=== PATIENT | female | born 1995 | race Two or more races ===

== ENCOUNTER 2023-08-03 01:35 | Emergency (ER) | payer OTHER ==
[2023-08-03 01:41] VITALS: BP 132/78; PULSE 88; RESP 18; TEMP 98; BMI 29.2
[2023-08-03 03:27] LABS: HCG,QUALITATIVE URINE Negative
[2023-08-03] MEDS ORDERED: ACETAMINOPHEN 325 MG TABLET (FP) PO ONE (03:53)
[2023-08-03] MEDS ORDERED: MAG HYDROX/AL HYDROX/SIMETH 30 ML UNIT-DOSE CUP PO ONE (03:53)
[2023-08-03] MEDS ORDERED: FAMOTIDINE 10 MG TABLET PO ONE (03:54)
[2023-08-03 04:01] LABS: URINE APPEARANCE CLEAR; URINE BILIRUBIN NEGATIVE (NEGATIVE); URINE COLOR YELLOW; URINE GLUCOSE (UA) NEGATIVE (NEGATIVE)
[2023-08-03 04:02] LABS: PH,URINE 6.5 (5.0-8.0); URINE KETONE TRACE (NEGATIVE); URINE LEUK ESTERASE NEGATIVE (NEGATIVE); URINE NITRITE NEGATIVE (NEGATIVE); URINE PROTEIN 100 (NEGATIVE)
== END 2023-08-03 04:40 | disposition home or self-care (01) ==
LOC: JER 01:35
DX: R10.13 Epigastric pain (principal)
CPT/HCPCS: 81003; 84703; 99283-25

== ENCOUNTER 2023-08-07 03:54 | Emergency (ER) | payer OTHER ==
[2023-08-07 04:08] VITALS: BP 145/90; PULSE 63; RESP 18; TEMP 98; BMI 27.4
[2023-08-07 04:40] LABS: EPI CELLS 6 /uL (0-25.1); HCG,QUALITATIVE URINE Negative; HYALINE CASTS 0 /uL (0-3.1); URINE APPEARANCE CLEAR; URINE BACTERIA 36 /uL (0-1359); URINE BILIRUBIN NEGATIVE (NEGATIVE); URINE COLOR YELLOW; URINE GLUCOSE (UA) NEGATIVE (NEGATIVE); URINE KETONE NEGATIVE (NEGATIVE); URINE LEUK ESTERASE NEGATIVE (NEGATIVE); URINE NITRITE NEGATIVE (NEGATIVE); URINE PROTEIN 1+ (NEGATIVE); URINE RBC 5 /uL (0-23.9); URINE UROBILINOGEN 0.2 mg/dL (0.2-1.0); URINE WBC 2 /uL (0-25.8)
[2023-08-07] MEDS ORDERED: MAG HYDROX/AL HYDROX/SIMETH 30 ML UNIT-DOSE CUP PO ONE (04:46)
[2023-08-07] MEDS ORDERED: FAMOTIDINE 20 MG TABLET PO ONE (04:46)
[2023-08-07] MEDS ORDERED: ACETAMINOPHEN 325 MG TABLET (FP) PO ONE (04:46)
[2023-08-07] MEDS ORDERED: ACETAMINOPHEN 325 MG TABLET (FP) ONE (05:03)
[2023-08-07] MEDS ORDERED: MAG HYDROX/AL HYDROX/SIMETH 30 ML UNIT-DOSE CUP ONE (05:04)
[2023-08-07] MEDS ORDERED: FAMOTIDINE 20 MG TABLET ONE (05:04)
[2023-08-07 05:23] LABS: BASO % 1.4 % (0-2.0); EOS % 2.4 % (0-4.5); HEMATOCRIT 34.4 % (32.4-45.2); HEMOGLOBIN 11.4 GM/dL (10.7-15.3); LYMPH % 21.6 % (8-40); MCH 31.3 pg (25.7-33.7); MEAN CELL VOLUME 94.9 fl (80-96); MEAN PLT VOLUME 7.9 fl (7.5-11.1); MONO % 9.2 % (3.8-10.2); NEUT % 65.4 % (42.8-82.8); PLATELET COUNT 427 10^3/uL (134-434); RBC 3.63 M/mm3 (3.60-5.2); WHITE BLOOD COUNT 10.5 K/mm3 (4.0-10.0)
[2023-08-07 05:39] LABS: POTASSIUM 4.8 mmol/L (3.5-5.1)
[2023-08-07 05:41] LABS: CALCIUM 8.7 mg/dL (8.5-10.1)
[2023-08-07 05:42] LABS: ALBUMIN 3.1 g/dl (3.4-5.0); BLOOD UREA NITROGEN 28.9 mg/dL (7-18)
[2023-08-07 05:45] LABS: CREATININE 1.3 mg/dL (0.55-1.3)
[2023-08-07 05:46] LABS: BILIRUBIN,TOTAL 0.2 mg/dL (0.2-1)
== END 2023-08-07 06:26 | disposition home or self-care (01) ==
LOC: JER 03:54
DX: R10.30 Lower abdominal pain, unspecified (principal); N39.0 Urinary tract infection, site not specified
CPT/HCPCS: 36415; 80053; 81003; 83690; 84703; 85025; 87086; 99283-25

== ENCOUNTER 2023-08-11 02:31 | Emergency (ER) | payer OTHER ==
[2023-08-11 02:39] VITALS: BP 148/92; PULSE 67; RESP 18; TEMP 98.5; BMI 36.8
[2023-08-11] MEDS ORDERED: ACETAMINOPHEN 1000 MG/100 ML BAG IVPB ONE (03:01)
[2023-08-11] MEDS ORDERED: ONDANSETRON 4 MG/2 ML VIAL IVPUSH ONE (03:01)
[2023-08-11 03:14] LABS: EPI CELLS >36 /uL (0-25.1); HYALINE CASTS 0 /uL (0-3.1); URINE APPEARANCE CLEAR; URINE BACTERIA 339 /uL (0-1359); URINE BILIRUBIN NEGATIVE (NEGATIVE); URINE COLOR RED; URINE GLUCOSE (UA) NEGATIVE (NEGATIVE); URINE KETONE NEGATIVE (NEGATIVE); URINE LEUK ESTERASE TRACE (NEGATIVE); URINE NITRITE NEGATIVE (NEGATIVE); URINE PROTEIN 2+ (NEGATIVE); URINE RBC 2103 /uL (0-23.9); URINE UROBILINOGEN 0.2 mg/dL (0.2-1.0); URINE WBC 84 /uL (0-25.8)
[2023-08-11] MEDS ORDERED: ONDANSETRON 4 MG TABLET PO ONE ×2 (03:21→03:23)
[2023-08-11] MEDS ORDERED: ACETAMINOPHEN 325 MG TABLET (FP) PO ONE (03:21)
[2023-08-11] MEDS ORDERED: ACETAMINOPHEN 325 MG TABLET (FP) ONE (03:23)
[2023-08-11 03:27] LABS: EOS % 4.3 % (0-4.5); HEMATOCRIT 37.6 % (32.4-45.2); HEMOGLOBIN 12.4 GM/dL (10.7-15.3); LYMPH % 27.3 % (8-40); MCH 30.7 pg (25.7-33.7); MEAN CELL VOLUME 93.1 fl (80-96); MEAN PLT VOLUME 7.7 fl (7.5-11.1); MONO % 8.1 % (3.8-10.2); NEUT % 59.3 % (42.8-82.8); PLATELET COUNT 439 10^3/uL (134-434); RBC 4.04 M/mm3 (3.60-5.2); RDW 15.1 % (11.6-15.6); WHITE BLOOD COUNT 10.2 K/mm3 (4.0-10.0)
[2023-08-11 03:42] LABS: CHLORIDE 106 mmol/L (98-107); POTASSIUM 4.2 mmol/L (3.5-5.1); SODIUM 136 mmol/L (136-145)
[2023-08-11 03:44] LABS: ALBUMIN 3.6 g/dl (3.4-5.0); ANION GAP 1 mmol/L (4-13); BLOOD UREA NITROGEN 19.3 mg/dL (7-18); CALCIUM 8.5 mg/dL (8.5-10.1); CO2 28 mmol/L (21-32); LIPASE 175 U/L (73-393)
[2023-08-11 03:45] LABS: GLUCOSE,RANDOM 108 mg/dL (74-106)
[2023-08-11 03:48] LABS: CREATININE 1.1 mg/dL (0.55-1.3); SGOT/AST 17 U/L (15-37); SGPT/ALT 21 U/L (13-61)
[2023-08-11 03:49] LABS: BILIRUBIN,TOTAL 0.3 mg/dL (0.2-1); TOT PROT 7.9 g/dl (6.4-8.2)
[2023-08-11 03:50] LABS: ALK PHOS 92 U/L (45-117)
== END 2023-08-11 06:36 | disposition home or self-care (01) ==
LOC: JER 02:31
DX: N93.9 Abnormal uterine and vaginal bleeding, unspecified (principal); R10.30 Lower abdominal pain, unspecified; R11.0 Nausea
CPT/HCPCS: 36415; 74176-TC; 80053; 81003; 83690; 84702; 85025; 86850; 86900; 86901; 87086; 93005; 93010; 99285-25

== ENCOUNTER 2024-04-10 03:39 | Emergency (ER) | payer OTHER ==
[2024-04-10 03:46] VITALS: BP 153/96; PULSE 88; RESP 18; TEMP 97.7; BMI 29.2
[2024-04-10 05:19] LABS: HCG,QUALITATIVE URINE Negative
[2024-04-10 05:55] LABS: EPI CELLS 35 /uL (0-25.1); HYALINE CASTS 0 /uL (0-3.1); URINE APPEARANCE CLEAR; URINE BACTERIA 245 /uL (0-1359); URINE BILIRUBIN NEGATIVE (NEGATIVE); URINE COLOR YELLOW; URINE GLUCOSE (UA) NEGATIVE (NEGATIVE); URINE KETONE NEGATIVE (NEGATIVE); URINE LEUK ESTERASE NEGATIVE (NEGATIVE); URINE NITRITE NEGATIVE (NEGATIVE); URINE PROTEIN 2+ (NEGATIVE); URINE RBC 20 /uL (0-23.9); URINE UROBILINOGEN 0.2 mg/dL (0.2-1.0); URINE WBC 6 /uL (0-25.8)
== END 2024-04-10 06:29 | disposition home or self-care (01) ==
LOC: JER 03:39
DX: R10.30 Lower abdominal pain, unspecified (principal); R11.2 Nausea with vomiting, unspecified
CPT/HCPCS: 81003; 84703; 99283-25

== ENCOUNTER 2024-04-17 05:12 | Emergency (ER) | payer OTHER ==
[2024-04-17 05:23] VITALS: RESP 20; TEMP 98.6; BMI 38.0
[2024-04-17] MEDS ORDERED: NIFEdipine E.R 60 MG TABLET PO ONE (06:09)
[2024-04-17] MEDS: NIFEdipine E.R 60 MG TABLET PO ONE (06:24)
[2024-04-17 06:48] LABS: EPI CELLS 5 /uL (0-25.1); HYALINE CASTS 0 /uL (0-3.1); URINE APPEARANCE CLEAR; URINE BACTERIA 19 /uL (0-1359); URINE BILIRUBIN NEGATIVE (NEGATIVE); URINE COLOR YELLOW; URINE GLUCOSE (UA) NEGATIVE (NEGATIVE); URINE KETONE NEGATIVE (NEGATIVE); URINE LEUK ESTERASE NEGATIVE (NEGATIVE); URINE NITRITE NEGATIVE (NEGATIVE); URINE PROTEIN 2+ (NEGATIVE); URINE RBC 12 /uL (0-23.9); URINE UROBILINOGEN 0.2 mg/dL (0.2-1.0); URINE WBC 3 /uL (0-25.8)
[2024-04-17 07:45] LABS: HCG,QUALITATIVE URINE Negative
[2024-04-17 09:38] VITALS: BP 167/113; PULSE 86
[2024-04-17] MEDS ORDERED: NIFEdipine E.R 60 MG TABLET PO SCH (10:00)
== END 2024-04-17 09:39 | disposition home or self-care (01) ==
LOC: JER 05:12
DX: R10.11 Right upper quadrant pain (principal); R93.5 Abnormal findings on diagnostic imaging of other abdominal regions, including retroperitoneum
CPT/HCPCS: 76705-TC; 81003; 84703; 87086; 99284-25

== ENCOUNTER 2024-04-24 17:56 | Observation (INO) | payer OTHER ==
[2024-04-24] MEDS: ASPIRIN 81 MG CHEWABLE TABLETS PO ONE (18:59)
[2024-04-24] MEDS ORDERED: NIFEdipine 10 MG CAPSULE (FP) PO ONE (19:00)
[2024-04-24] MEDS ORDERED: NIFEdipine E.R 60 MG TABLET PO ONE (19:19)
[2024-04-24 19:23] LABS: BASO % 1.2 % (0-2.0); EOS % 2.3 % (0-4.5); HEMATOCRIT 34.1 % (32.4-45.2); HEMOGLOBIN 11.5 GM/dL (10.7-15.3); MCH 31.3 pg (25.7-33.7); MCHC 33.7 g/dl (32.0-36.0); MEAN CELL VOLUME 92.6 fl (80-96); MEAN PLT VOLUME 7.5 fl (7.5-11.1); MONO % 8.7 % (3.8-10.2); NEUT % 56.8 % (42.8-82.8); PLATELET COUNT 400 10^3/uL (134-434); RBC 3.69 M/mm3 (3.60-5.2); RDW 15.9 % (11.6-15.6); WHITE BLOOD COUNT 8.8 K/mm3 (4.0-10.0)
[2024-04-24] MEDS: NIFEdipine E.R 60 MG TABLET PO ONE (19:23)
[2024-04-24 19:31] LABS: INR 1.07 (0.83-1.09); PROTHROMBIN TIME (PATIENT) 12.1 SEC (9.7-13.0)
[2024-04-24 19:33] LABS: ACTIVATED PTT 28.7 SECONDS (25.2-36.5)
[2024-04-24 19:52] LABS: POTASSIUM 3.6 mmol/L (3.5-5.1)
[2024-04-24 19:54] LABS: ALBUMIN 3.4 g/dl (3.4-5.0); BLOOD UREA NITROGEN 21.4 mg/dL (7-18); CALCIUM 9.2 mg/dL (8.5-10.1)
[2024-04-24 19:55] LABS: MAGNESIUM 2.1 mg/dL (1.8-2.4)
[2024-04-24 19:58] LABS: CREATININE 1.1 mg/dL (0.55-1.3)
[2024-04-24 20:00] LABS: BILIRUBIN,TOTAL 0.4 mg/dL (0.2-1); TOT PROT 7.4 g/dl (6.4-8.2)
[2024-04-24] MEDS ORDERED: LABETALOL HCL 200 MG TABLET (FP) ONE (21:12)
[2024-04-24] MEDS: LABETALOL HCL 200 MG TABLET (FP) PO ONE (21:12)
[2024-04-25 06:22] VITALS: RESP 18
[2024-04-25 06:33] LABS: POTASSIUM 3.9 mmol/L (3.5-5.1)
[2024-04-25 06:36] LABS: ALBUMIN 3.4 g/dl (3.4-5.0); CALCIUM 8.5 mg/dL (8.5-10.1)
[2024-04-25 06:37] LABS: BLOOD UREA NITROGEN 15.7 mg/dL (7-18); MAGNESIUM 1.9 mg/dL (1.8-2.4)
[2024-04-25 06:39] LABS: CREATININE 0.9 mg/dL (0.55-1.3)
[2024-04-25 06:40] LABS: PHOSPHOROUS 3.3 mg/dL (2.5-4.9)
[2024-04-25] MEDS: ACETAMINOPHEN 325 MG TABLET (FP) PO ONE (06:40)
[2024-04-25 06:41] LABS: BILIRUBIN,TOTAL 0.3 mg/dL (0.2-1); TOT PROT 7.3 g/dl (6.4-8.2)
[2024-04-25 06:42] LABS: BASO % 1.4 % (0-2.0); EOS % 2.8 % (0-4.5); HEMATOCRIT 35.9 % (32.4-45.2); HEMOGLOBIN 11.8 GM/dL (10.7-15.3); MCH 30.7 pg (25.7-33.7); MEAN CELL VOLUME 92.9 fl (80-96); MEAN PLT VOLUME 7.8 fl (7.5-11.1); MONO % 9.8 % (3.8-10.2); PLATELET COUNT 398 10^3/uL (134-434); RBC 3.86 M/mm3 (3.60-5.2); RDW 15.5 % (11.6-15.6); WHITE BLOOD COUNT 8.2 K/mm3 (4.0-10.0)
[2024-04-25 09:11] LABS: EPI CELLS 26 /uL (0-25.1); HYALINE CASTS 0 /uL (0-3.1); URINE APPEARANCE CLEAR; URINE BACTERIA 129 /uL (0-1359); URINE BILIRUBIN NEGATIVE (NEGATIVE); URINE COLOR YELLOW; URINE GLUCOSE (UA) NEGATIVE (NEGATIVE); URINE KETONE 1+ (NEGATIVE); URINE LEUK ESTERASE NEGATIVE (NEGATIVE); URINE NITRITE NEGATIVE (NEGATIVE); URINE PROTEIN 2+ (NEGATIVE); URINE RBC 9 /uL (0-23.9); URINE UROBILINOGEN 0.2 mg/dL (0.2-1.0); URINE WBC 4 /uL (0-25.8)
[2024-04-25] MEDS ORDERED: NIFEdipine E.R. 30 MG TABLET PO SCH (10:00)
[2024-04-25] MEDS: LABETALOL HCL 200 MG TABLET (FP) PO SCH (10:23)
[2024-04-25] MEDS: NIFEdipine E.R. 30 MG TABLET PO SCH (10:23)
[2024-04-25] MEDS: ENOXAPARIN NA (PORCINE) 40 MG/0.4 ML DISP.SYRIN SQ SCH (10:26)
[2024-04-25 13:44] VITALS: BMI 38.7
[2024-04-25 15:16] VITALS: BP 143/101; PULSE 70; TEMP 97.5
[2024-04-25] MEDS ORDERED: HYDROCHLOROTHIAZIDE 12.5 MG CAPSULE (FP) PO SCH (22:00)
== END 2024-04-25 17:56 | disposition home or self-care (01) ==
LOC: JER 17:56 → INTOOBSV 22:12 → UNDOADMOB 22:12 → JERBED 22:12 → J6S 04-25 09:41 → JERBED 04-25 09:50 → J6S 04-25 09:50
PROVIDERS: ADMIT Internal Medicine; ATTEND Internal Medicine
DX: I16.0 Hypertensive urgency (principal); R51.9 Headache, unspecified; E22.1 Hyperprolactinemia; F41.9 Anxiety disorder, unspecified; F20.9 Schizophrenia, unspecified
CPT/HCPCS: 36415; 70450-TC; 70551-TC; 71046-TC-FY; 80053; 80061; 81003; 82550; 82553; 82570; 83735; 84100; 84156; 84439; 84443; 84484; 84703; 85025; 85610; 85730; 93005; 93010; 93306-TC; 99285-25; G0378

== ENCOUNTER 2024-05-03 23:38 | Emergency (ER) | payer OTHER ==
[2024-05-03 23:47] VITALS: BMI 36.6
[2024-05-04] MEDS ORDERED: FAMOTIDINE 20 MG TABLET ONE (00:32)
[2024-05-04] MEDS ORDERED: ACETAMINOPHEN 325 MG TABLET (FP) ONE (00:33)
[2024-05-04] MEDS ORDERED: ONDANSETRON *ODT* 4 MG TABLET ONE (00:33)
[2024-05-04] MEDS ORDERED: NIFEdipine E.R. 30 MG TABLET PO ONE (00:33)
[2024-05-04] MEDS ORDERED: MAG HYDROX/AL HYDROX/SIMETH 30 ML UNIT-DOSE CUP ONE (00:33)
[2024-05-04] MEDS ORDERED: LIDOCAINE 5% TOPICAL PATCH ONE (00:34)
[2024-05-04] MEDS: ONDANSETRON *ODT* 4 MG TABLET SL ONE (00:57)
[2024-05-04] MEDS: LIDOCAINE 4% PATCH TP ONE (00:57)
[2024-05-04] MEDS: MAG HYDROX/AL HYDROX/SIMETH 30 ML UNIT-DOSE CUP PO ONE (00:57)
[2024-05-04] MEDS: NIFEdipine E.R. 30 MG TABLET PO ONE (00:57)
[2024-05-04] MEDS: FAMOTIDINE 20 MG TABLET PO ONE (00:57)
[2024-05-04] MEDS: ACETAMINOPHEN 325 MG TABLET (FP) PO ONE (00:58)
[2024-05-04 01:07] LABS: BASO % 0.9 % (0-2.0); EOS % 2.2 % (0-4.5); HEMATOCRIT 31.4 % (32.4-45.2); HEMOGLOBIN 10.4 GM/dL (10.7-15.3); LYMPH % 20.6 % (8-40); MCH 30.4 pg (25.7-33.7); MCHC 33.3 g/dl (32.0-36.0); MEAN CELL VOLUME 91.4 fl (80-96); MEAN PLT VOLUME 7.7 fl (7.5-11.1); NEUT % 67.3 % (42.8-82.8); PLATELET COUNT 379 10^3/uL (134-434); RBC 3.43 M/mm3 (3.60-5.2); RDW 15.2 % (11.6-15.6); WHITE BLOOD COUNT 11.7 K/mm3 (4.0-10.0)
[2024-05-04 01:41] VITALS: RESP 16
[2024-05-04 01:46] LABS: POTASSIUM 3.6 mmol/L (3.5-5.1)
[2024-05-04 01:48] LABS: ALBUMIN 3.1 g/dl (3.4-5.0); BLOOD UREA NITROGEN 20.4 mg/dL (7-18); CALCIUM 8.8 mg/dL (8.5-10.1); MAGNESIUM 1.9 mg/dL (1.8-2.4)
[2024-05-04 01:51] LABS: CREATININE 1.1 mg/dL (0.55-1.3)
[2024-05-04 01:53] LABS: BILIRUBIN,TOTAL 0.2 mg/dL (0.2-1)
[2024-05-04] MEDS ORDERED: SUCRALFATE 1 GM TABLET (FP) ONE (05:04)
[2024-05-04 05:30] LABS: EPI CELLS 12 /uL (0-25.1); HYALINE CASTS 0 /uL (0-3.1); URINE APPEARANCE CLEAR; URINE BACTERIA 151 /uL (0-1359); URINE BILIRUBIN NEGATIVE (NEGATIVE); URINE COLOR YELLOW; URINE GLUCOSE (UA) NEGATIVE (NEGATIVE); URINE KETONE NEGATIVE (NEGATIVE); URINE LEUK ESTERASE NEGATIVE (NEGATIVE); URINE NITRITE NEGATIVE (NEGATIVE); URINE PROTEIN 1+ (NEGATIVE); URINE RBC 15 /uL (0-23.9); URINE UROBILINOGEN 0.2 mg/dL (0.2-1.0); URINE WBC 3 /uL (0-25.8)
[2024-05-04] MEDS: SUCRALFATE 1 GM TABLET (FP) PO ONE (05:39)
[2024-05-04 06:03] VITALS: BP 155/98; PULSE 59; TEMP 97.8
[2024-05-04] MEDS ORDERED: NIFEdipine E.R. 30 MG TABLET PO SCH (10:00)
[2024-05-04] MEDS ORDERED: LIDOCAINE PATCH REMOVAL MC SCH (22:00)
== END 2024-05-04 06:56 | disposition home or self-care (01) ==
LOC: JER 23:38
DX: R10.84 Generalized abdominal pain (principal); R11.0 Nausea
CPT/HCPCS: 36415; 74176-TC; 80053; 81003; 83690; 83735; 84703; 85025; 99284-25; Q0162

== ENCOUNTER 2024-05-27 06:05 | Emergency (ER) | payer OTHER ==
[2024-05-27 06:18] VITALS: BP 156/102; PULSE 77; RESP 18; TEMP 98.8; BMI 38.5
[2024-05-27] MEDS: ACETAMINOPHEN 1000 MG/100 ML BAG IVPB ONE (07:40)
[2024-05-27] MEDS: SODIUM CHLORIDE 1,000 ML IV STA (07:40)
[2024-05-27] MEDS ORDERED: ONDANSETRON 4 MG/2 ML VIAL ONE (07:41)
[2024-05-27] MEDS ORDERED: ACETAMINOPHEN INJECTION 100 ML ONE (07:41)
[2024-05-27] MEDS ORDERED: FAMOTIDINE 20 MG/50 ML IVPB 20 MG/50 ML MG IVPB ONE (07:41)
[2024-05-27] MEDS: ONDANSETRON 4 MG/2 ML VIAL IVPUSH ONE (07:56)
[2024-05-27] MEDS: FAMOTIDINE 20 MG/50 ML IVPB 20 MG/50 ML MG IVPB ONE (07:56)
[2024-05-27 08:10] LABS: BASO % 1.3 % (0-2.0); EOS % 2.9 % (0-4.5); HEMATOCRIT 34.1 % (32.4-45.2); HEMOGLOBIN 11.2 GM/dL (10.7-15.3); LYMPH % 22.8 % (8-40); MCH 30.6 pg (25.7-33.7); MCHC 32.9 g/dl (32.0-36.0); MEAN CELL VOLUME 92.9 fl (80-96); MEAN PLT VOLUME 7.8 fl (7.5-11.1); MONO % 8.6 % (3.8-10.2); NEUT % 64.4 % (42.8-82.8); PLATELET COUNT 399 10^3/uL (134-434); RBC 3.67 M/mm3 (3.60-5.2); RDW 14.9 % (11.6-15.6); WHITE BLOOD COUNT 8.4 K/mm3 (4.0-10.0)
[2024-05-27 08:12] LABS: EPI CELLS 30 /uL (0-25.1); HYALINE CASTS 1 /uL (0-3.1); URINE APPEARANCE CLEAR; URINE BACTERIA 120 /uL (0-1359); URINE BILIRUBIN NEGATIVE (NEGATIVE); URINE COLOR YELLOW; URINE GLUCOSE (UA) NEGATIVE (NEGATIVE); URINE KETONE 2+ (NEGATIVE); URINE LEUK ESTERASE NEGATIVE (NEGATIVE); URINE NITRITE NEGATIVE (NEGATIVE); URINE PROTEIN 3+ (NEGATIVE); URINE RBC 23 /uL (0-23.9); URINE WBC 10 /uL (0-25.8)
[2024-05-27 08:26] LABS: POTASSIUM 3.5 mmol/L (3.5-5.1)
[2024-05-27 08:28] LABS: ALBUMIN 3.4 g/dl (3.4-5.0); BLOOD UREA NITROGEN 17.4 mg/dL (7-18); CALCIUM 8.8 mg/dL (8.5-10.1)
[2024-05-27 08:33] LABS: BILIRUBIN,TOTAL 0.5 mg/dL (0.2-1); CREATININE 1.1 mg/dL (0.55-1.3); TOT PROT 7.2 g/dl (6.4-8.2)
== END 2024-05-27 10:57 | disposition left against medical advice (07) ==
LOC: JER 06:05
PROC: 3E033GC Introduction of Other Therapeutic Substance into Peripheral Vein, Percutaneous Approach (ICD-10-PCS; principal; 2024-05-27)
PROC: 3E033NZ Introduction of Analgesics, Hypnotics, Sedatives into Peripheral Vein, Percutaneous Approach (ICD-10-PCS; 2024-05-27)
PROC: 3E033GC Introduction of Other Therapeutic Substance into Peripheral Vein, Percutaneous Approach (ICD-10-PCS; 2024-05-27)
DX: R10.31 Right lower quadrant pain (principal); R50.9 Fever, unspecified; Z20.822 Contact with and (suspected) exposure to COVID-19
CPT/HCPCS: 0241U-QW; 36415; 80053; 81003; 83690; 84703; 85025; 87086; 93005; 93010; 96365; 96375; 99284-25; J0131